=== PATIENT | female | born 1960 | race Caucasian/White ===

== ENCOUNTER 2017-09-07 10:39 | Emergency (ER) | payer OTHER ==
[~2017-09-07] VITALS: Ht 154.9 cm; Wt 47.6 kg
[~2017-09-07 10:39] MED LIST: DIPH50 PO; PRED10 PO
[2017-09-07 11:31] LABS: BASOPHILS ABSOLUTE AUTO 0.02 K/mm3 (0.00-0.23); BASOPHILS PERCENT AUTO 0 % (0-2); EOSINOPHILS ABSOLUTE AUTO 0.34 K/mm3 (0.00-0.68); EOSINOPHILS PERCENT AUTO 4 % (0-6); Hemoglobin 13.8 g/dL (11.5-16.0); IMMATURE GRAN ABSOLUTE AUTO 0.03 K/mm3 (0.00-0.10); IMMATURE GRAN PERCENT AUTO 0 % (0-1); LYMPHOCYTES ABSOLUTE AUTO 1.63 K/mm3 (0.84-5.20); LYMPHOCYTES PERCENT AUTO 21 % (21-46); MONOCYTES ABSOLUTE AUTO 0.63 K/mm3 (0.16-1.47); MONOCYTES PERCENT AUTO 8 % (4-13); Mean Corpuscular HGB 31.2 pg (26.0-34.0); Mean Corpuscular HGB Conc 32.9 g/dL (31.5-36.5); Mean Corpuscular Volume 95 fL (80-100); Mean Platelet Volume 11.3 fL (9.1-12.4); NEUTROPHILS ABSOLUTE AUTO 5.18 K/mm3 (1.96-9.15); NEUTROPHILS PERCENT AUTO 66 % (41-73); Platelet Count 346 K/mm3 (150-400); RDW Coefficient Variation 12.4 % (11.7-14.2); RDW Standard Deviation 43.3 fL (35.1-46.3); Red Blood Cell Count 4.42 M/mm3 (3.80-5.20); White Blood Cell Count 7.83 K/mm3 (4.00-11.30)
[2017-09-07 11:42] LABS: Ethanol (Alcohol), Blood, Med <3 mg/dL
[2017-09-07 11:43] LABS: Alanine Aminotransfer (ALT/SGP 30 U/L (12-78); Albumin/Globulin Ratio 1.1 (0.8-1.8); Alk Phos 51 U/L (50-136); Anion Gap 8 mmol/L (6-16); Aspartate Aminotrans (AST/SGOT 18 U/L (12-37); Bilirubin, Total 0.5 mg/dL (0.1-1.0); Blood Urea Nitrogen 19 mg/dL (8-24); Bun/Creatinine Ratio 20.3 (12.0-20.0); CO2, Blood 26 mmol/L (21-32); Calcium, Blood 9.1 mg/dL (8.5-10.1); Chloride, Blood 108 mmol/L (98-108); Creatinine, Blood 0.93 mg/dL (0.40-1.00); Globulin, Blood 3.5 g/dL (2.2-4.0); Glomerular Filtration Rate >60 (60-); Glucose, Blood 89 mg/dL (70-99); Potassium, Blood 3.5 mmol/L (3.5-5.5); Sodium, Blood 142 mmol/L (136-145); Total Protein, Blood 7.5 g/dL (6.4-8.2)
[2017-09-07 12:14] LABS: Troponin I <0.015 ng/mL (0.000-0.040)
[2017-09-07 12:22] LABS: U Amphetamine Screen Not Detected; U Barbituate Screen Not Detected; U Benzodiazapine Screen Not Detected; U Buprenorphine Screen Not Detected; U Cannabinoids Screen Not Detected; U Cocaine Screen Not Detected; U Methadone Screen Not Detected; U Methamphetamine Screen Not Detected; U Opiates Screen Not Detected; U Oxycodone Screen Not Detected; U Phencyclidine Screen Not Detected; U Propoxyphene Screen Not Detected
== END 2017-09-07 13:08 | disposition home or self-care (01) ==
LOC: ER 10:39
PROVIDERS: Emergency Medicine
DX: R55 Syncope and collapse (principal); Z79.52 Long term (current) use of systemic steroids; Z79.899 Other long term (current) drug therapy; Z87.891 Personal history of nicotine dependence
CPT/HCPCS: 36415; 80053; 84484; 85025; 93005; 93010; 99283; G0480

== ENCOUNTER 2018-08-17 13:41 | Day surgery (SDC) | payer OTHER ==
[~2018-08-17] VITALS: Ht 154.9 cm; Wt 52.9 kg
[~2018-08-17 13:41] MED LIST changes: +CETI5 PO; +DIFLORASONE DIA; +[UNRECOGNIZED DRUG - OTHER]
--- NOTE | 2018-08-17 14:27 | NUR ---
Ambulatory in Day Surgery Lungs clear T/O to Auscultation. History, Chart, Medications and Allergies reviewed before start of procedure.Pre-Op teaching done. Pt verbalizes understanding. PT IS CONSENTED FOR PROCEDURE. LOCAL INJ, NO ANESTHESIA. NO IV PER DR HIRSCH. LAST MEAL THIS AM AT 0845.
--- NOTE | 2018-08-17 14:46 | NUR ---
08/17/18 1446 Prem Cardona PATIENT TO OR FOR PROCEDURE UNDER LOCAL ONLY. 1436 HR=67 BP =118/65 [id number] ON RA RR=20 NO IV, NO ANTIBIOTICS
--- NOTE | 2018-08-17 15:36 | NUR ---
AT 1515 RECIEVED PATIENT DENIES PAIN VSS. DISCHARGE INSTRUCTIONS WRITTEN UP AND PATIENT ALLOWED TO DRESS AND AMBULATE OUT OF HERE. NO SEDATION WAS GIVEN FOR PROCEDURE.
== END 2018-08-17 23:10 | disposition home or self-care (01) ==
LOC: ORSCMMR 13:41 → SURS 13:42 → ORSCMMR 15:00
PROVIDERS: Orthopaedic Surgery
PROC: 0LB80ZZ Excision of Left Hand Tendon, Open Approach (ICD-10-PCS; principal; 2018-08-17 15:00)
DX: M71.342 Other bursal cyst, left hand (principal); Z79.899 Other long term (current) drug therapy
CPT/HCPCS: J2250; J2704; J3010